=== PATIENT | male | born 1970 | race Caucasian/White ===

== ENCOUNTER 2017-09-01 09:30 | Emergency (ER) | payer OTHER, BC ==
--- NOTE | 2017-09-01 10:08 | ED Physician Documentation ---
History of Present Illness - Stated complaint Stated Complaint: PELVIC PX - Chief complaint Chief Complaint: Abd Pain - Additonal information Additional information: while at work yesterday pt lifted at an awkward angle and developed r inguinal pain and swelling concerned for a hernia pain is moderate no NV no prior hernia otherwise well Review of Systems Constitutional: denies: Fever GI: reports: Other (inguinal pain). denies: Abdominal Pain, Nausea, Vomiting, Diarrhea : reports: Other (scrotal swell) Endocrine: denies: Easy bruising / bleeding Immunocompromised: denies: Immunocompromised PD PAST MEDICAL HISTORY - Past Medical History Past Medical History: No - Past Surgical History Past Surgical History: No - Allergies Allergies/Adverse Reactions: Allergies Allergy/AdvReac Type Severity Reaction Status Date / Time No Known Drug Allergies Allergy Verified 08/30/15 22:13 - Social History Does the pt smoke?: No Smoking Status: Never smoker Does the pt drink ETOH?: Yes Does the pt have substance abuse?: No - Immunizations Immunizations are current?: Yes Immunizations: TDAP >10years/unknown PD ED PE NORMAL - Vitals Vital signs reviewed: Yes - Cardiac Cardiac: RRR - Respiratory Respiratory: No respiratory distress, Clear bilaterally - Abdomen Abdomen: Soft, Other (TTP low medial R inguinal region with soft compressible swelling) - Male Male : Other (R teste NT and nllie but hernia sac palpable and reducible) Results - Vitals Vitals: Vital Signs - 24 hr 09/01/17 09:34 Temperature 36.5 C Heart Rate 69 Respiratory 15 Rate Blood Pressure 129/91 H O2 Saturation 96 Oxygen O2 Source Room air PD MEDICAL DECISION MAKING - ED course ED course: MSE performed injury identified - reducible R inguinal hernia occurred on the job will refer to surgery for consideration of repair stable for dc - Sepsis Event Vital Signs: Vital Signs - 24 hr 09/01/17 09:34 Temperature 36.5 C Heart Rate 69 Respiratory 15 Rate Blood Pressure 129/91 H O2 Saturation 96 Oxygen O2 Source Room air Departure - Departure Disposition: 01 Home, Self Care Clinical Impression: Inguinal hernia Qualifiers: Obstruction and gangrene presence: without obstruction or gangrene Laterality: unilateral Recurrence: non-recurrent Qualified Code(s): K40.90 - Unilateral inguinal hernia, without obstruction or gangrene, not specified as recurrent Condition: Good Instructions: ED Hernia Inguinal Follow-Up: Vaughn Rivera MD [Provider Admit Priv/Credential] - Comments: No lifting more than 10 lbs If the hernia bulges and is uncomfortable, try laying down, applying an ice pack for 10 minutes and then firmly pressing to push the hernia sac back into the abdominal cavity If the hernia is very painful, cannot be reduced, or you are vomiting, come back to the ER Forms: Activity restrictions
[2017-09-01 10:37] VITALS: BP 120/88
== END 2017-09-01 10:36 | disposition home or self-care (01) ==
LOC: ED 09:30
DX: K40.90 Unilateral inguinal hernia, without obstruction or gangrene, not specified as recurrent (principal); X50.9XXA Other and unspecified overexertion or strenuous movements or postures, initial encounter; Y92.89 Other specified places as the place of occurrence of the external cause; Y99.0 Civilian activity done for income or pay
CPT/HCPCS: 99283

== ENCOUNTER 2017-09-27 08:34 | Day surgery (SDC) | payer OTHER, BC ==
[~2017-09-27 08:34] MED LIST: BUPIVACAINE 0.5% PF 30 ML VIAL ONE; LACTATED RINGERS 1,000 ML IV ONE; ceFAZolin 2 GM/50 ML 2 GM/50 ML BAG IV ONE
--- NOTE | 2017-09-27 09:28 | ANESTHESIA ---
Pre-Anesthesia VS, & Labs - Diagnosis right inguinal hernia - Procedure Right inguinal hernia repair Vital Signs: Temp Pulse Resp BP Pulse Ox 36.5 C 16 130/84 H 96 09/27/17 08:42 09/27/17 08:42 09/27/17 08:42 09/27/17 08:42 HR 73 Height 6 ft Weight (kg) 86.1 kg Body Mass Index 25.7 - NPO >8 hours Home Medications and Allergies Home Medications: Ambulatory Orders Medication Instructions Recorded Confirmed No Known Home Medications [No 09/27/17 09/27/17 Known Home Medications] Allergies/Adverse Reactions: Allergies Allergy/AdvReac Type Severity Reaction Status Date / Time No Known Drug Allergies Allergy Verified 08/30/15 22:13 Anes History & Medical History - Anesthetic History Anesthesia Complications: reports: No previous complications Family history of Anesthesia Complications: Denies Family history of Malignant Hyperthermia: Denies - Medical History Cardiovascular: reports: None Pulmonary: reports: None Gastrointestinal: reports: None Urinary: reports: None Neuro: reports: Migraines Musculoskeletal: reports: None Endocrine/Autoimmune: reports: None Skin: reports: Other Smoking Status: Never smoker Exam General: Alert Dental: WNL Mouth Openin Fingerbreadth Mallampati classification: II Thyromental Distance: 4-6 cm Respiratory: Lungs clear Cardiovascular: Regular rate Mental/Cognitive Status: Alert/Oriented X3 Plan Anesthesia Type: General, MAC (MAC or General, up to provider) Consent for Procedure(s) Verified and Reviewed: Yes Code Status: Attempt Resuscitation ASA classification: 1-Healthy patient Is this case an emergency?: No
--- NOTE | 2017-09-27 10:02 | OPERATIVE REPORT ---
Operative Report - General Planned Procedure: Right inguinal herniorrhaphy Pre-Op Diagnosis: Right inguinal hernia Procedure Performed: Right indirect inguinal herniorrhaphy with mesh and excision cord lipoma Post Op Diagnosis: Right indirect inguinal hernia and cord lipoma - Procedure Note Primary Surgeon: Vaughn Rivera MD Anesthesia Provider: Hoda Murrell CRNA Anesthesia Technique: General LMA, Local (30 mL of half percent Marcaine) IV Fluids (mL): 1,200 Estimated Blood Loss (mL): 15 Complications: None. - Other Other Information/Narrative: OPERATIVE DESCRIPTION/REPORT: After verbal and written informed consent was obtained detailing the risks of infection, bleeding requiring transfusion with its risks, nerve injury, and , and after I met with the patient confirming the surgery and the site of the surgery and after initialing the site of the surgery with a surgical marker , the patient was brought to the operative suite and placed supine on the operating table. Great care was taken to avoid pressure points to prevent pressure necrosis or nerve injury. Monitoring devices were applied along with TEDs and pneumatic compressive stockings (to prevent DVT). The patient received preoperative antibiotics for surgical prophylaxis. [washer repairman/ anesthesiologist] sedated and anesthetized the patient for the entire procedure. The patient was prepped and draped in the usual sterile manner. With the patient draped my initials were clearly visible. A "time in" then confirmed that the patient was identified with 3 identifiers (name, date and medical record number), the history and physical was in the chart, the signed consent confirming the procedure was in the chart, the patient was in the correct position, the aforementioned prophylactic measures were in place or given, we had the correct personnel and equipment to complete the procedure and that anesthesia, surgery and nursing were given an opportunity to express any concerns. With the agreement of everyone in the room, we proceeded with the operation. A standard inguinal incision was made and dissection was carried down to the external oblique aponeurosis using a combination of Metzenbaum scissors and Bovie electrocautery. The external oblique aponeurosis was cleared of overlying adherent tissue, and the external ring was delineated. The external oblique was the incised with a scalpel and this incision was carried out to the external ring using Metzenbaum scissors. Having exposed the inguinal canal, the cord structures were from the canal using blunt dissection, and a Arbuckle drain was placed around the cord structures at the level of the pubic tubercle. This Rohan drain was then used to retract the cord structures as needed. Adherent cremasteric muscle was dissected free from the cord using Bovie electrocautery. The cord was then explored using a combination of sharp and blunt dissection. Dissection along the cord structures found a lipoma that was dissected back to the internal ring, ligated with a 3-0 Vicryl, transected, the stump cauterized and allowed to retract back into the abdomen. The lipoma was not sent to pathology. The sac was found anteromedially to the cord structures. The sac was dissected free from the cord structures using a combination of blunt dissection and Bovie electrocautery. Once preperitoneal fat was encountered, the dissection stopped and the sac with a sliding component was inverted back into the abdomen and an extra-large Bard Perfix plug (Ref# [id number], Lot# [id number], use date 2022-07-04) inserted into the internal ring. The plug was secured to the internal ring by interrupted 2-0 PDS sutures. The Bard Perfix enlay patch was then placed on the floor of the inguinal canal and secured in place using interrupted 0 PDS sutures to the conjoined tendon superiorly, pubic tubercle medially, and shelving edge inferiorly. By reinforcing the floor with the enlay patch, a new internal ring was thus formed. The Arbuckle drain was removed. The wound was then irrigated using sterile saline, and hemostasis was obtained using Bovie electrocautery. The incision in the external oblique was approximated using a 3-0 Vicryl in a running fashion , thus reforming the external ring. 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 The skin incision was approximated with 4-0 Monocryl in a subcuticular fashion. The skin was prepped with benzoin and steristrips were applied. At this point a time out was performed that confirmed that all the counts were correct, the procedure that was performed, the blood loss, the IV fluids administered, and the patients condition. A dressing was then applied. Gentle downward traction ensured that the testes were well seated in the scrotum. Having tolerated the procedure well , the patient was taken to short stay in good and stable condition. Gigi disclaimer: This document was created in part using voice recognition technology. Because of the inherent limitations of the system ([email or web address]'s Dragon Dictate user manual states that the licensee understands that speech recognition is a statistical process and that recognition errors are inherent in the process), occasional same sounding word substitutions and grammatical errors do occur and persist despite proofreading. Please read this document for context.
[2017-09-27] MEDS ORDERED: LACTATED RINGERS 1,000 ML IV ONE (11:29)
[2017-09-27] MEDS ORDERED: KETOROLAC 30 MG/ML VIAL IVP ONE (11:39)
[2017-09-27] MEDS ORDERED: ONDANSETRON 4 MG/2 ML VIAL IVP ONE (11:39)
[2017-09-27] MEDS ORDERED: DEXAMETHASONE 4 MG/ML VIAL IVP ONE (11:39)
[2017-09-27] MEDS ORDERED: PROPOFOL 200 MG/20 ML VIAL IVP ONE (11:39)
[2017-09-27] MEDS ORDERED: MIDAZOLAM 2 MG/2 ML VIAL IVP ONE (11:39)
[2017-09-27] MEDS ORDERED: fentaNYL 100 MCG/2 ML VIAL IVP ONE (11:39)
[2017-09-27] MEDS: fentaNYL 100 MCG/2 ML VIAL ONE ×3 (11:49→12:03)
[2017-09-27] MEDS ORDERED: oxyCOD/ACETAMIN 5 MG/325 MG TABLET PO ONE (12:59)
[2017-09-27 13:02] VITALS: BP 133/85
== END 2017-09-27 08:35 | disposition home or self-care (01) ==
LOC: SDS 08:34
PROVIDERS: ATTEND Surgery
PROC: 0VBF0ZZ Excision of Right Spermatic Cord, Open Approach (ICD-10-PCS; 2017-09-27)
PROC: 0YU50JZ Supplement Right Inguinal Region with Synthetic Substitute, Open Approach (ICD-10-PCS; principal; 2017-09-27 09:30)
DX: K40.90 Unilateral inguinal hernia, without obstruction or gangrene, not specified as recurrent (principal); D17.6 Benign lipomatous neoplasm of spermatic cord
CPT/HCPCS: 49505; 55520; A9270; C1781; J0690; J7120

== ENCOUNTER 2019-06-11 13:51 | Emergency (ER) | payer OTHER, BC ==
--- NOTE | 2019-06-11 14:52 | XRAY Report ---
Reason: fall, knee pain Procedure Date: 06/11/2019 Accession Number: [id number] / [id number] Procedure: XR - Knee 4 View RT CPT Code: Final Report FULL RESULT: EXAM: RIGHT KNEE RADIOGRAPHY EXAM DATE: 06/11/2019 02:41 PM. CLINICAL HISTORY: Right knee instability. [place] a pop today. COMPARISON: None. TECHNIQUE: 4 views. FINDINGS: Bones: Normal. No fractures or bone lesions. Joints: There are small medial compartment osteophytes. The joint spaces are preserved. Soft Tissues: Normal. No soft tissue swelling. IMPRESSION: Mild osteoarthritis of the right knee. RADIA
--- NOTE | 2019-06-11 15:11 | ED Physician Documentation ---
PD HPI LOWER EXT INJURY - Stated complaint Stated Complaint: RT KNEE PX - Chief complaint Chief Complaint: Ext Problem - History obtained from History obtained from: Patient - History of Present Illness PD HPI LOW EXT INJURY LOCATION: Right, Knee Type of injury: Twist (he states he was stepping down at work on 05/28 and felt a pain/slight pop in right knee with some pain anteriorly and has continued with some pain on walking/standing and feeling of tightness in the knee. Some clicking and popping at times. Today was walking to his car and was going down incline and felt a large pop in knee, with abrupt pain and subsequent swelling. Minimally able to walk on knee. Feels swelling of knee. Denies other injury.) Where injury occurred: Work Timing - onset: How many weeks ago (initially, with significant worsening today) Timing - details: Abrupt onset Improved by: Rest Worsened by: Moving, Other (weight bearing) Associated symptoms: Swelling. No: Weakness, Numbness Contributing factors: No: Anticoagulated, Prior ortho surgery Similar symptoms before: Has not had sx before Recently seen: Clinic (seen at [facility] [place] with the initial injury and told to use some NSAIDs and simple knee supporter.) Review of Systems Constitutional: denies: Fever Nose: denies: Rhinorrhea / runny nose, Congestion Respiratory: denies: Cough GI: denies: Vomiting, Diarrhea, Bloody / black stool Skin: denies: Rash, Lesions Musculoskeletal: denies: Back pain Neurologic: reports: Focal weakness (feeling right leg is not strong to try to extend it). denies: Numbness PD PAST MEDICAL HISTORY - Past Medical History Past Medical History: Yes Cardiovascular: None Respiratory: None Neuro: Migraines Endocrine/Autoimmune: None GI: None : None HEENT: None Psych: None Musculoskeletal: None Derm: Other - Past Surgical History Past Surgical History: No - Present Medications Home Medications: Ambulatory Orders Medication Instructions Recorded Confirmed Hydrocodone/Acetaminophen [[place] 1 each PO Q6H PRN #15 tablet 06/11/19 5-325 Tablet] - Allergies Allergies/Adverse Reactions: Allergies Allergy/AdvReac Type Severity Reaction Status Date / Time No Known Drug Allergies Allergy Verified 06/11/19 14:02 - Social History Does the pt smoke?: No Smoking Status: Never smoker Does the pt drink ETOH?: Yes Does the pt have substance abuse?: No - Immunizations Immunizations are current?: Yes Immunizations: TDAP >10years/unknown - POLST Patient has POLST: No PD ED PE NORMAL - Vitals Vital signs reviewed: Yes - General General: Alert and oriented X 3, No acute distress, Well developed/nourished - Derm Derm: Normal color, Warm and dry, No rash - Extremities Extremities: Other (right knee with mild to moderate effusion; not tense. Tender popliteal area, anterior and laterally. Exam limited by pain and guarding. No gross laxity on cruciate nor collateral testing. Unable to perform meniscal stress due to pain. ) - Neuro Neuro: Alert and oriented X 3, No motor deficit, No sensory deficit, Normal speech Results - Vitals Vitals: Vital Signs - 24 hr 06/11/19 06/11/19 14:03 16:13 Temperature 36.7 C 36.5 C Heart Rate 75 65 Respiratory 16 18 Rate Blood Pressure 133/88 H 136/88 H O2 Saturation 97 100 Oxygen O2 Source Room air - Rads (name of study) right knee Radiology: Prelim report reviewed (no fractures), See rad report PD MEDICAL DECISION MAKING - ED course Complexity details: considered differential (seems likely initiallly partial tear of meniscus and now seems more likely worse tear with effusion and feeling of pain/instability with weight bearing/ROM. ), d/w patient Departure - Departure Disposition: 01 Home, Self Care Clinical Impression: Knee effusion, right Acute meniscal injury of knee Qualifiers: Encounter type: initial encounter Laterality: right Qualified Code(s): S83.8X1A - Sprain of other specified parts of right knee, initial encounter Condition: Stable Record reviewed to determine appropriate education?: Yes Instructions: ED Meniscal Injury Knee Poss Follow-Up: [facility] [Provider Group] Prescriptions: Hydrocodone/Acetaminophen [[place] 5-325 Tablet] 1 each PO Q6H PRN #15 tablet PRN Reason: Pain Comments: Your symptoms and findings are very suggestive of a torn cartilage in the knee (meniscus). There will be added pain in the right now because of the swelling as well. Use the Rickey wrap to help reduce some of the swelling in the knee. The knee immobilizer when up and around for the next week or 2 until follow-up with orthopedics. Use the crutches for partial to no weightbearing as needed for comfort. Use some anti-inflammatories such as naproxen 2-3 times daily. Add Tylenol or hydrocodone if needed for worse pain. Off work for the next 3 days to help the swelling of the knee go down. Follow-up with orthopedics in about a week, call today or tomorrow for an appointment. At that point it should be hurting less in the fluid in the joint will be less so they can examine it a little better. At that point they can decide whether other treatment or advanced imaging is warranted. Forms: Activity restrictions Discharge Date/Time: 06/11/19 16:24
[2019-06-11 16:14] VITALS: BP 136/88
== END 2019-06-11 16:24 | disposition home or self-care (01) ==
LOC: ED 13:51
DX: S83.8X1A Sprain of other specified parts of right knee, initial encounter (principal); X58.XXXA Exposure to other specified factors, initial encounter; Y93.89 Activity, other specified; Y92.89 Other specified places as the place of occurrence of the external cause; Y99.0 Civilian activity done for income or pay
CPT/HCPCS: 1040M; 73564; 99283

== ENCOUNTER 2019-10-02 12:45 | Outpatient (CLI) | payer BC, OTHER ==
--- NOTE | 2019-10-02 15:51 | MRI Report ---
PROCEDURE: Knee RT W/O INDICATIONS: INTERNAL DERANGEMENT OF RT KNEE TECHNIQUE: Noncontrast sagittal PD fast spin echo and T2 fast spin echo with fat saturation, sagittal 3-D gradie nt sequence with fat saturation; coronal T1 spin echo and PD fast spin echo with fat saturation, and axial PD fast spin echo with fat saturation through the knee. COMPARISON: None. FINDINGS: Image quality: Excellent. Menisci: There is radial tearing of the posterior horn medial meniscus at the meniscal root ligament insertion site. Linear horizontally oriented high T2 signal intensity traverses the lateral meniscal body, without definite articular surface extension. Cruciate ligaments: The anterior and posterior cruciate ligaments appear intact. Medial structures: The medial collateral ligament appears intact. Visualized portions of the pes ans erinus tendons appear normal. No abnormal bursal fluid. Lateral structures: The lateral collateral ligament demonstrates mild T2 signal elevation at the fem oral origin. Long and short heads of the biceps femoris tendon appear intact. The popliteus tendon a ppears normal. Iliotibial band appears normal. Anterior structures: The quadriceps and patellar tendons appear intact. Patellar alignment is di l. No femoral trochlear dysplasia or ventral trochlear prominence. No edema in the infrapatellar fa t pad. Bones and cartilage: No bone marrow contusions or fractures. Mild tricompartmental periarticular ost eophyte formation is present. Mild articular cartilage loss diffusely overlies the weightbearing aspe cts of the medial femoral condyle and medial tibial plateau. Joint space: There is a moderate knee joint effusion and a trace Moore?s cyst. Normal appearing syn ovial plicae are incidentally noted. IMPRESSION: 1. Posterior horn medial meniscal tearing. 2. Low-grade partial-thickness lateral collateral ligament tear. 3. Knee joint effusion and trace Moore's cyst. Reviewed by: Tony Zarate MD on 10/02/2019 3:50 PM PDT Approved by: Tony Zarate MD on 10/02/2019 3:50 PM PDT Station ID: [id number]
== END 2019-10-02 12:46 | disposition home or self-care (01) ==
LOC: DI 12:45
PROVIDERS: ATTEND Physician Assistant
DX: S83.241A Other tear of medial meniscus, current injury, right knee, initial encounter (principal); S83.421A Sprain of lateral collateral ligament of right knee, initial encounter; M71.21 Synovial cyst of popliteal space [Baker], right knee; M25.461 Effusion, right knee

== ENCOUNTER 2019-12-11 18:39 | Outpatient (CLI) | payer BC | END 2019-12-11 18:40 | disposition home or self-care (01) | LOC: COV 18:39 | PROVIDERS: ATTEND Family Medicine | DX: R05 Cough (principal); R53.83 Other fatigue; J02.9 Acute pharyngitis, unspecified; R19.7 Diarrhea, unspecified; R43.8 Other disturbances of smell and taste; R09.81 Nasal congestion; Z20.828 Contact with and (suspected) exposure to other viral communicable diseases ==

== ENCOUNTER 2021-08-07 11:09 | Outpatient (CLI) | payer BC ==
[2021-08-07 17:35] LABS: BASOPHILS # (AUTO) 0.1 10^3/uL (0.0-0.1); BASOPHILS % (AUTO) 1.2 %; EOSINOPHILS # (AUTO) 0.8 10^3/uL (0.0-0.7); EOSINOPHILS % (AUTO) 7.8 %; HCT - HEMATOCRIT 48.3 % (42.0-52.0); LYMPHOCYTES # (AUTO) 2.9 10^3/uL (1.5-3.5); LYMPHOCYTES % (AUTO) 29.9 %; MEAN CORPUSCULAR HEMOGLOBIN 30.9 pg (27.0-31.0); MEAN CORPUSCULAR HGB CONC 33.1 g/dL (32.0-36.0); MEAN CORPUSCULAR VOLUME 93.4 fL (80.0-94.0); MEAN PLATELET VOLUME 10.4 fL (7.4-11.4); MONOCYTES # (AUTO) 0.7 10^3/uL (0.0-1.0); MONOCYTES % (AUTO) 7.6 %; NEUTROPHILS # (AUTO) 5.2 10^3/uL (1.5-6.6); NEUTROPHILS % (AUTO) 53.2 %; PLT - PLATELET COUNT 309 10^3/uL (130-450); RED BLOOD COUNT 5.17 10^6/uL (4.70-6.10); WHITE BLOOD COUNT 9.8 x10^3/uL (4.8-10.8)
[2021-08-07 18:02] LABS: ALBUMIN 4.2 g/dL (3.2-5.5); ALBUMIN/GLOBULIN RATIO 1.5 (1.0-2.2); ALKALINE PHOSPHATASE 50 IU/L (42-121); ALT ALANINE AMINOTRANSFERASE 26 IU/L (10-60); AST ASPARTATE AMINOTRANSFERASE 15 IU/L (10-42); BILIRUBIN,TOTAL 1.1 mg/dL (0.2-1.0); BUN - BLOOD UREA NITROGEN 17 mg/dL (6-20); CALCIUM 9.5 mg/dL (8.5-10.3); CARBON DIOXIDE - CO2 29 mmol/L (21-32); CHLORIDE 101 mmol/L (101-111); CHOL/HDL RATIO 4.7 (<5.0); CHOLESTEROL 232 mg/dL; CREATININE 1.1 mg/dL (0.6-1.2); GFR - MDRD 70 (>89); GLUCOSE 91 mg/dL (70-100); HDL CHOLESTEROL 49 mg/dL; LDL CHOLESTEROL,CALCULATED 147 mg/dL; POTASSIUM 4.2 mmol/L (3.5-5.0); SODIUM 137 mmol/L (135-145); TRIGLYCERIDES 181 mg/dL; VLDL CHOLESTEROL 36 mg/dL
[2021-08-07 18:11] LABS: THYROID STIMULATING HORMONE 5.18 uIU/mL (0.34-5.60)
== END 2021-08-07 11:10 | disposition home or self-care (01) ==
LOC: LAB.N 11:09
PROVIDERS: ATTEND Physician Assistant
DX: Z13.9 Encounter for screening, unspecified (principal); Z13.220 Encounter for screening for lipoid disorders; Z12.5 Encounter for screening for malignant neoplasm of prostate; Z13.29 Encounter for screening for other suspected endocrine disorder
CPT/HCPCS: 36415; 80053; 80061; 83721; 84153; 84443; 85025